=== PATIENT | female | born 1960 | race Two or more races ===

== ENCOUNTER 2016-07-24 21:01 | Emergency (ER) | payer BC ==
[~2016-07-24] VITALS: Ht 154.9 cm; Wt 113.4 kg
--- NOTE | 2016-07-24 23:04 | RAD ---
PROCEDURE Left lower extremity venous duplex Doppler ultrasound HISTORY Left leg swelling and pain TECHNIQUE Grayscale and duplex Doppler sonography were utilized COMPARISON No prior FINDINGS No evidence of deep venous thrombosis by grayscale imaging with compressibility, patent color Doppler blood flow and respiratory variability and augmentation of blood flow of the left common femoral vein, greater saphenous vein in the proximal thigh, profunda femoral vein, superficial femoral vein and popliteal vein. Patent color Doppler blood flow of the posterior tibial and peroneal veins documented in the calf. IMPRESSION Negative left leg for deep venous thrombosis. Electronically signed by: Allan Ojeda MD (July 24, 2016 23:03:12)
[2016-07-24] MEDS ORDERED: HYDROmorphone 2 MG/ML VIAL IV ONE (23:15)
[2016-07-24] MEDS ORDERED: KETOROLAC 15 MG/ML VIAL. IV ONE (23:15)
[2016-07-24] MEDS ORDERED: ONDANSETRON PF 4 MG/2 ML VIAL. IV ONE (23:15)
[2016-07-24 23:37] LABS: BASO # 0.1 x10^3/uL (0.0-0.2); BASO % 1 % (0-3); EOS % 2 % (0-3); HEMATOCRIT 41.1 % (36.0-47.0); HEMOGLOBIN 14.1 g/dL (12.0-15.5); LYMPH # 4.4 x10^3/uL (1.0-4.8); LYMPH % 46 % (24-48); MEAN CORPUSCULAR HEMOGLOBIN 30 pg (25-35); MEAN CORPUSCULAR HGB CONC 34 g/dL (31-37); MEAN CORPUSCULAR VOLUME 87 fL (79-100); MONO % 6 % (0-9); NEUT % 45 % (31-73); PLATELET COUNT 243 x10^3/uL (140-400); RED BLOOD COUNT 4.75 x10^6/uL (3.50-5.40); RED CELL DISTRIBUTION WIDTH 14.3 % (11.5-14.5); WHITE BLOOD COUNT 9.4 x10^3/uL (4.0-11.0)
[2016-07-24 23:46] LABS: CALCIUM 9.1 mg/dL (8.5-10.1); CREATININE 0.8 mg/dL (0.6-1.0); GFR 74.2; POTASSIUM 3.6 mmol/L (3.5-5.1)
[2016-07-24 23:53] LABS: ALBUMIN 3.5 g/dL (3.4-5.0); ALBUMIN/GLOBULIN RATIO 0.8 (1.0-1.7); TOTAL BILIRUBIN 0.4 mg/dL (0.2-1.0); TOTAL PROTEIN 7.7 g/dL (6.4-8.2)
[2016-07-25] MEDS ORDERED: ONDANSETRON PF 4 MG/2 ML VIAL. IV ONE (00:45)
[2016-07-25 01:29] VITALS: BP 120/57
[2016-07-25] MEDS ORDERED: HYDR-971 PO (01:34)
[2016-07-25] MEDS ORDERED: IBUP-1007 PO (01:34)
--- NOTE | 2016-07-25 01:35 | PHYS DOC ---
Past Medical History Past Medical History: No Pertinent History Past Surgical History: Tubal ligation Alcohol Use: None Drug Use: None Adult General Chief Complaint Chief Complaint: LOWER EXTREMITY SWELLING HPI HPI Patient is a 55 year old female who presents here today secondary to a traumatic left lower extremities swelling that was noted this morning. Patient reports she has pain in that area. Patient reports pain is greatest in her knee and he says all the way down to her foot. Patient denies any other past medical history. Patient has a history of hypertension diabetes liver longer kidney pals. Patient has no history of CAD or COPD. Patient has no history of DVT or PE in the past. Patient does have a cholecystectomy and appendectomy in the past. Patient does smoke no alcohol or drugs. No control pills. Patient denies any fevers shakes chills nausea vomiting diarrhea chest pain shortness of breath. Patient has any trauma to her legs. Patient reports no prior similar episodes in the past. No history of gout or DVT DJD. Patient's workup in the ER consisted of normal labs and the ultrasound that was unremarkable. There is no evidence of DVT. Limitations of a ultrasound was discussed with the patient and the need to get a repeat ultrasound in 1 week was discussed with the patient. Physical exam the ER was significant for tenderness to palpation to her left lower extremity. Patient has no warmth. Patient is no evidence of cellulitis. Patient has no trauma. Altars were evaluated and the webspaces showed no evidence of any kind of infection. Patient's knee joint was not warm. There is no effusion. There is no evidence of a septic joint. Patient full range of motion to her knee and ankle and hip although patient have discomfort with bending her knee. A/P #1 left lower some edema of unclear etiology. Workup in ER has been unremarkable. I do not see any evidence of cellulitis. I do not see any evidence of DVT. Patient was stable for discharge. Patient was informed of the limitations of the workup in the ER. Patient was instructed to follow up with PCP this week. Review of Systems Review of Systems Constitutional: Denies fever or chills [] Eyes: Denies change in visual acuity, redness, or eye pain [] HENT: Denies nasal congestion or sore throat [] All other review systems are negative except as documented in the history of present illness portion. Current Medications Current Medications Current Medications Medications (Trade) Dose Ordered Sig/Torey Start Time Stop Time Status Last Admin Dose Admin Hydromorphone HCl (Dilaudid) 1 mg 1X ONCE 07/24/16 23:15 07/24/16 23:16 DC 07/24/16 23:37 1 MG Ketorolac Tromethamine (Toradol) 15 mg 1X ONCE 07/24/16 23:15 07/24/16 23:16 DC 07/24/16 23:36 15 MG Ondansetron HCl (Zofran) 4 mg 1X ONCE 07/25/16 00:45 07/25/16 00:46 DC 07/25/16 00:44 4 MG Allergies Allergies Allergies Coded Allergies Type Severity Reaction Last Updated Verified No Known Drug Allergies 07/24/16 No Physical Exam Physical Exam Constitutional: Well developed, well nourished, no acute distress, non-toxic appearance. [] HENT: Normocephalic, atraumatic, bilateral external ears normal, oropharynx moist, no oral exudates, nose normal. [] Eyes: PERRLA, EOMI, conjunctiva normal, no discharge. [] Neck: Normal range of motion, no tenderness, supple, no stridor. [] Cardiovascular:Heart rate regular rhythm, Lungs & Thorax: Bilateral breath sounds clear to auscultation [] Abdomen: Bowel sounds normal, soft, no tenderness, no masses, no pulsatile masses. [] Skin: Warm, dry, no erythema, no rash. [] Back: No tenderness, no CVA tenderness. [] Extremities: see above Neurologic: Alert and oriented X 3, normal motor function, normal sensory function, no focal deficits noted. [] Psychologic: Affect normal, judgement normal, mood normal. [] Current Patient Data Vital Signs Vital Signs Date Time Temp Pulse Resp B/P (MAP) Pulse Ox O2 Delivery O2 Flow Rate FiO2 07/24/16 23:37 16 Room Air 07/24/16 22:48 98.0 91 193/92 (125) 97 98.0 Lab Values Laboratory Tests Test 07/24/16 23:29 White Blood Count 9.4 x10^3/uL (4.0-11.0) Red Blood Count 4.75 x10^6/uL (3.50-5.40) Hemoglobin 14.1 g/dL (12.0-15.5) Hematocrit 41.1 % (36.0-47.0) Mean Corpuscular Volume 87 fL (79-100) Mean Corpuscular Hemoglobin 30 pg (25-35) Mean Corpuscular Hemoglobin Concent 34 g/dL (31-37) Red Cell Distribution Width 14.3 % (11.5-14.5) Platelet Count 243 x10^3/uL (140-400) Neutrophils (%) (Auto) 45 % (31-73) Lymphocytes (%) (Auto) 46 % (24-48) Monocytes (%) (Auto) 6 % (0-9) Eosinophils (%) (Auto) 2 % (0-3) Basophils (%) (Auto) 1 % (0-3) Neutrophils # (Auto) 4.3 x10^3uL (1.8-7.7) Lymphocytes # (Auto) 4.4 x10^3/uL (1.0-4.8) Monocytes # (Auto) 0.5 x10^3/uL (0.0-1.1) Eosinophils # (Auto) 0.2 x10^3/uL (0.0-0.7) Basophils # (Auto) 0.1 x10^3/uL (0.0-0.2) Sodium Level 140 mmol/L (136-145) Potassium Level 3.6 mmol/L (3.5-5.1) Chloride Level 103 mmol/L (98-107) Carbon Dioxide Level 28 mmol/L (21-32) Anion Gap 9 (6-14) Blood Urea Nitrogen 14 mg/dL (7-20) Creatinine 0.8 mg/dL (0.6-1.0) Estimated GFR (Cockcroft-Gault) 74.2 BUN/Creatinine Ratio 18 (6-20) Glucose Level 111 mg/dL (70-99) H Calcium Level 9.1 mg/dL (8.5-10.1) Total Bilirubin 0.4 mg/dL (0.2-1.0) Aspartate Amino Transferase (AST) 18 U/L (15-37) Alanine Aminotransferase (ALT) 36 U/L (14-59) Alkaline Phosphatase 73 U/L (46-116) Total Protein 7.7 g/dL (6.4-8.2) Albumin 3.5 g/dL (3.4-5.0) Albumin/Globulin Ratio 0.8 (1.0-1.7) L Laboratory Tests 07/24/16 23:29 Laboratory Tests 07/24/16 23:29 EKG EKG [] Radiology/Procedures Radiology/Procedures [] Course & Med Decision Making Course & Med Decision Making Pertinent Labs and Imaging studies reviewed. (See chart for details) [] X-ray of left knee reveals mild DJD. No evidence of any fracture. Interpreted by Dr. Marx. Aminta Disclaimer Aminta Disclaimer This electronic medical record was generated, in whole or in part, using a voice recognition dictation system. Departure Departure Impression: Primary Impression: Peripheral edema Additional Impression: Edema of left lower extremity Disposition: HOME, SELF-CARE Condition: IMPROVED Referrals: NO PCP (PCP) Patient Instructions: Peripheral Edema Additional Instructions: Please follow up with your doctor this week for further evaluation. He will be given a list of physicians here in the [facility] area. Scripts Hydrocodone/Apap 5-325 (NORCO 5-325 TABLET) 1 Each Tablet 1 TAB PO QID Y for PAIN, #10 TAB Prov: CHARLY TIAN MD 07/25/16 Ibuprofen (IBUPROFEN) 600 Mg Tablet 600 MG PO PRN Q6HRS Y for PAIN, #20 TAB Prov: CHARLY TIAN MD 07/25/16 Problem Qualifiers CHARLY TIAN MD July 25, 2016 01:35
--- NOTE | 2016-07-25 07:15 | RAD ---
Exam performed: 3 views left knee. History: Left knee pain since this morning. Date of service: 07/24/16. Comparison: None available Findings: AP, lateral and oblique views of the left knee were obtained. There is mild narrowing of the medial left tibiofemoral as well as patellofemoral joint. There is no acute fracture or dislocation. There is a small suprapatellar joint effusion. No foreign body. 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
== END 2016-07-25 01:48 | disposition home or self-care (01) ==
LOC: ER 21:01
DX: R60.0 Localized edema (principal); I10 Essential (primary) hypertension; E11.9 Type 2 diabetes mellitus without complications; F17.200 Nicotine dependence, unspecified, uncomplicated; Z90.49 Acquired absence of other specified parts of digestive tract
CPT/HCPCS: 36415; 73562; 80053; 85027; 93971; 96374; 96375; 96376; 99285; J1170; J1885; J2405